=== PATIENT | male | born 1970 | race Caucasian/White ===

== ENCOUNTER 2016-06-22 08:23 | Day surgery (SDC) | payer BC ==
[~2016-06-22 08:23] MED LIST: DIPRIVAN 200 MG/20 ML IV ONE; Kenalog-40 IM ONE; Ketamine HCl 50 MG/ML IV ONE; Sensorcaine 0.25% 10 ML IJ ONE
[2016-06-22 09:42] VITALS: BP 132/78; PULSE 58; O2SAT 98
[2016-06-22] MEDS ORDERED: Lactated Ringers 1,000 ML IV SCH (10:00)
--- NOTE | 2016-06-23 08:48 | XRAY ---
9 seconds fluoro time in surgery for right L3-S1 facet injection.
--- NOTE | 2016-06-23 08:48 | XRAY ---
Indication: Right L3-S1 facet injection. Intraoperative fluoroscopy was provided for 9 seconds. Single frontal digital spot image of the lower lumbar spine submitted for interpretation demonstrates 3 posterior spinal needles with the tips projecting over the right L3-S1 facets. Correlate with intraoperative findings/report.
== END 2016-06-22 12:07 | disposition home or self-care (01) ==
LOC: SDC-PAIN 08:23
PROVIDERS: ATTEND Pain Medicine Interventional Pain Medicine
DX: M96.1 Postlaminectomy syndrome, not elsewhere classified (principal); M54.5 Low back pain; M47.816 Spondylosis without myelopathy or radiculopathy, lumbar region
CPT/HCPCS: 64493; 64494; 64495; 72020; 77003; J2704; J3301

== ENCOUNTER 2016-12-17 20:04 | Emergency (ER) | payer BC ==
[2016-12-17] MEDS ORDERED: Nitrostat 0.4 MG (ED) SL ONE ×6 (20:14→20:46)
[2016-12-17] MEDS ORDERED: BABY ASPIRIN 81 MG CHEW PO ONE (20:14)
[2016-12-17] MEDS ORDERED: Sodium Chloride 0.9% 1000 ML 1,000 ML IV SCH (20:15)
[2016-12-17] MEDS ORDERED: Sodium Chloride 0.9% 1000 ML 1,000 ML ONE (20:24)
[2016-12-17] MEDS ORDERED: BABY ASPIRIN 81 MG CHEW ONE (20:25)
--- NOTE | 2016-12-17 20:25 | ERPHSYRPT ---
- History of Present Illness Time Seen by Provider: 12/17/16 20:07 Historian: patient Exam Limitations: no limitations Patient Subjective Stated Complaint: pt had sudden onset substernal chest pain sudden onset pos diaphoresis tingling thru to back grabbed and squeezed neg nv did eat a spicy meal 1130states on prednisone for a rasha nd he has a bad back Triage Nursing Assessment: pt is awake and alert and moaning and holding his chest Physician History: FOR THE PAST 10 MINUTES PT HAS HAD LOWER MID ANTERIOR CHEST PAIN RADIATING TO THE BACK WITH DIAPHORESIS; DENIES SHORTNESS OF AIR, ABDOMINAL PAIN, NAUSEA, VOMITING. Aspirin Treatment Today: 81 mg x 4, provided by ED Allergies/Adverse Reactions: No Known Drug Allergies Allergy (Verified 12/17/16 20:22) Home Medications: Hydrocodone Bit/Acetaminophen [Hydrocodon-Acetaminophn 10-325] 1 tab PO TID [History] Lisinopril 10 mg [Zestril 10 MG] 10 mg PO DAILY 05/12/16 [History] Simvastatin 20 mg PO DAILY 05/12/16 [History] AMITRIPTYLINE HCL 50 mg Tab [AMITRIPTYLINE HCL 50 mg Tablet] 100 mg PO HS [History] Hx Tetanus, Diphtheria Vaccination/Date Given: Yes (1 YEAR) Hx Influenza Vaccination/Date Given: Yes Hx Pneumococcal Vaccination/Date Given: No Immunizations Up to Date: Yes - Review of Systems Constitutional: No Fever Respiratory: No Dyspnea Cardiac: Chest Pain Abdominal/Gastrointestinal: No Abdominal Pain, No Nausea, No Vomiting Musculoskeletal: Back Pain Endocrine: Excessive Sweating All Other Systems: Reviewed and Negative - Past Medical History Pertinent Past Medical History: No Neurological History: No Pertinent History ENT History: No Pertinent History Cardiac History: High Cholesterol, Hypertension Respiratory History: No Pertinent History Endocrine Medical History: No Pertinent History Musculoskeletal History: Osteoarthritis GI Medical History: No Pertinent History History: No Pertinent History Psycho-Social History: No Pertinent History - Past Surgical History Past Surgical History: Yes Other Surgical History: TRAUMATIC C-7 REPAIR - Social History Smoking Status: Former smoker Exposure to second hand smoke: No Drug Use: none Patient Lives Alone: No - Nursing Vital Signs Nursing Vital Signs: Initial Vital Signs Pulse Rate 72 12/17/16 20:10 Respiratory Rate 24 12/17/16 20:10 Blood Pressure 150/106 12/17/16 20:10 O2 Sat by Pulse Oximetry 96 12/17/16 20:10 Pain Scale Pain Intensity 1 - Physical Exam General Appearance: alert, anxiety Eye Exam: PERRL/EOMI Ears, Nose, Throat Exam: pharynx normal, moist mucous membranes Neck Exam: normal inspection Respiratory Exam: lungs clear Cardiovascular Exam: normal heart sounds Gastrointestinal/Abdomen Exam: soft, normal bowel sounds Back Exam: normal inspection Extremity Exam: normal inspection, No pedal edema Neurologic Exam: alert, cooperative Skin Exam: warm, dry SpO2 Interpretation: normal SpO2: 96 Oxygen Delivery: Room Air - Course Nursing assessment & vital signs reviewed: Yes EKG Interpreted by Me: RATE (70), Sinus Rhythm, NORMAL AXIS, NORMAL INTERVALS - Radiology Exams Chest X-ray Interpretation: Interpreted by me, No Pneumonia Ordered Tests: Active Orders 24 hr Category Date Time Status Multimedia Instructional Designer STAT Care 12/17/16 20:14 Active Clean Catch Urine Specimen STAT Care 12/17/16 20:14 Active EKG-ER Only STAT Care 12/17/16 20:14 Active EKG-ER Only STAT Care 12/17/16 21:02 Active IV Insertion STAT Care 12/17/16 20:14 Active Oxygen-ED Only NASAL CANNULA 2 lpm Care 12/17/16 20:14 Active Pulse Oximetry (ED) STAT Care 12/17/16 20:14 Active CHEST 1 VIEW (PORTABLE) Stat Exams 12/17/16 20:15 Taken AMYLASE Stat Lab 12/17/16 20:20 Completed CBC W DIFF Stat Lab 12/17/16 20:20 Completed CMP Stat Lab 12/17/16 20:20 Completed D-DIMER QUANTITATION Stat Lab 12/17/16 20:20 Completed LIPASE Stat Lab 12/17/16 20:20 Completed MAGNESIUM Stat Lab 12/17/16 20:20 Completed NT PRO BNP Stat Lab 12/17/16 20:20 Completed TROPONIN Q3H Lab 12/17/16 20:20 Completed TROPONIN Q3H Lab 12/17/16 23:15 Ordered TROPONIN Q3H Lab 12/18/16 02:15 Ordered TROPONIN Q3H Lab 12/18/16 05:15 Ordered TROPONIN Q3H Lab 12/18/16 08:15 Ordered UA W/RFX UR CULTURE Stat Lab 12/17/16 20:15 Ordered Urine Triage Profile Stat Lab 12/17/16 20:15 Ordered Medication Summary Generic Name Dose Route Start Last Admin Trade Name Freq PRN Reason Stop Dose Admin Sodium Chloride 1,000 mls @ 100 mls/hr 12/17/16 20:15 12/17/16 20:27 Sodium Chloride 0.9% 1000 Ml IV 01/16/17 20:14 100 mls/hr .Q10H MINA Administration Sodium Chloride 1,000 mls @ 999 mls/hr 12/17/16 21:22 12/17/16 21:33 Sodium Chloride 0.9% 1000 Ml IV 12/17/16 22:22 999 mls/hr .Q1H1M STA Administration Discontinued Medications Generic Name Dose Route Start Last Admin Trade Name Freq PRN Reason Stop Dose Admin Aspirin 324 mg 12/17/16 20:14 12/17/16 20:27 Baby Aspirin 81 Mg Chew PO 12/17/16 20:15 324 mg STAT ONE Administration Aspirin Confirm 12/17/16 20:25 Baby Aspirin 81 Mg Chew Administered 12/17/16 20:26 Dose 324 mg .ROUTE .STK-MED ONE Nitroglycerin 0.4 mg 12/17/16 20:14 12/17/16 20:24 Nitrostat 0.4 Mg (Ed) SL 12/17/16 20:15 0.4 mg STAT ONE Administration Nitroglycerin 0.4 mg 12/17/16 20:25 12/17/16 20:28 Nitrostat 0.4 Mg (Ed) SL 12/17/16 20:26 0.4 mg STAT ONE Administration Nitroglycerin Confirm 12/17/16 20:25 Nitrostat 0.4 Mg (Ed) Administered 12/17/16 20:26 Dose 0.4 mg SL .STK-MED ONE Nitroglycerin Confirm 12/17/16 20:31 Nitrostat 0.4 Mg (Ed) Administered 12/17/16 20:32 Dose 0.4 mg SL .STK-MED ONE Nitroglycerin 0.4 mg 12/17/16 20:43 12/17/16 20:47 Nitrostat 0.4 Mg (Ed) SL 12/17/16 20:44 0.4 mg STAT ONE Administration Nitroglycerin Confirm 12/17/16 20:46 Nitrostat 0.4 Mg (Ed) Administered 12/17/16 20:47 Dose 0.4 mg SL .STK-MED ONE Lab/Rad Data: Laboratory Result Diagrams 12/17/16 20:20 12/17/16 20:20 Laboratory Results 12/17/16 12/17/16 12/17/16 Range/Units 20:20 20:20 20:20 WBC (4.0-10.5) K/mm3 RBC (4.1-5.6) M/mm3 Hgb (12.5-18.0) gm/dl Hct (42-50) % MCV (78-100) fl MCH (26-32) pg MCHC (32-36) g/dl RDW (11.5-14.0) % Plt Count (150-450) K/mm3 MPV (6-9.5) fl Gran % (36.0-66.0) % Lymphocytes % (24.0-44.0) % Monocytes % (0.0-12.0) % Eosinophils % (0.00-5.0) % Basophils % (0.0-0.4) % Basophils # (0-0.4) D-Dimer 239 (0-500) ng/mL Sodium 140 (136-145) mEq/L Potassium 3.9 (3.5-5.1) mEq/L Chloride 103 (98-107) mEq/L Carbon Dioxide 24.7 (21-32) mEq/L Anion Gap 16.0 H (5-15) MEQ/L BUN 24 H (9-20) mg/dL Creatinine 1.24 (0.55-1.30) mg/dl Estimated GFR > 60 ML/MIN Glucose 102 (70-110) MG/DL Calcium 9.6 (8.5-10.1) mg/dL Magnesium 1.9 (1.8-2.4) mg/dL Total Bilirubin 0.40 (0.2-1.0) mg/dL AST 19 (15-37) U/L ALT 51 (12-78) U/L Alkaline Phosphatase 65 (46-116) U/L Troponin I 0.028 (0.000-0.056) ng/ml NT-Pro-B Natriuret Pep 43 (0-125) pg/ml Serum Total Protein 7.6 (6.4-8.2) gm/dL Albumin 4.3 (3.4-5.0) g/dL Amylase 40 (25-115) U/L Lipase 139 (73-393) U/L 12/17/16 Range/Units 20:20 WBC 11.3 H (4.0-10.5) K/mm3 RBC 4.82 (4.1-5.6) M/mm3 Hgb 14.4 (12.5-18.0) gm/dl Hct 42.7 (42-50) % MCV 88.6 (78-100) fl MCH 29.9 (26-32) pg MCHC 33.7 (32-36) g/dl RDW 14.6 H (11.5-14.0) % Plt Count 275 (150-450) K/mm3 MPV 9.4 (6-9.5) fl Gran % 71.5 H (36.0-66.0) % Lymphocytes % 20.9 L (24.0-44.0) % Monocytes % 6.8 (0.0-12.0) % Eosinophils % 0.5 (0.00-5.0) % Basophils % 0.3 (0.0-0.4) % Basophils # 0.03 (0-0.4) D-Dimer (0-500) ng/mL Sodium (136-145) mEq/L Potassium (3.5-5.1) mEq/L Chloride (98-107) mEq/L Carbon Dioxide (21-32) mEq/L Anion Gap (5-15) MEQ/L BUN (9-20) mg/dL Creatinine (0.55-1.30) mg/dl Estimated GFR ML/MIN Glucose (70-110) MG/DL Calcium (8.5-10.1) mg/dL Magnesium (1.8-2.4) mg/dL Total Bilirubin (0.2-1.0) mg/dL AST (15-37) U/L ALT (12-78) U/L Alkaline Phosphatase (46-116) U/L Troponin I (0.000-0.056) ng/ml NT-Pro-B Natriuret Pep (0-125) pg/ml Serum Total Protein (6.4-8.2) gm/dL Albumin (3.4-5.0) g/dL Amylase (25-115) U/L Lipase (73-393) U/L - Progress Discussed with : Other (SPOKE WITH DR LONGO([id number]) WHO ACCEPTED PT FOR TRANSFER TO [facility] A DIRECT ADMISSION.) - Departure Time of Disposition: 21:44 Departure Disposition: Transfer ([facility]) Clinical Impression: CHEST PAIN, HTN, ARTHRITIS Condition: Stable Critical Care Time: No Referrals: Fozia Taylor NP [Primary Care Provider] -
[2016-12-17 20:28] LABS: BASOPHIL % 0.3 % (0.0-0.4); Eosinophil % 0.5 % (0.00-5.0); Granulocytes % 71.5 % (36.0-66.0); Lymphocytes % 20.9 % (24.0-44.0); Mean Cell Volume 88.6 fl (78-100); Mean Corpuscular Hemoglobin 29.9 pg (26-32); Mean Platelet Volume 9.4 fl (6-9.5); Monocytes % 6.8 % (0.0-12.0); Platelet Count 275 K/mm3 (150-450); Red Blood Count 4.82 M/mm3 (4.1-5.6); Red Cell Distribution Width 14.6 % (11.5-14.0); White Blood Count 11.3 K/mm3 (4.0-10.5)
[2016-12-17 21:07] LABS: ALBUMIN 4.3 g/dL (3.4-5.0); ALKALINE PHOSPHATASE 65 U/L (46-116); BLOOD UREA NITROGEN 24 mg/dL (9-20); CHLORIDE 103 mEq/L (98-107); Carbon Dioxide 24.7 mEq/L (21-32); Glucose 102 MG/DL (70-110); LIPASE 139 U/L (73-393); MAGNESIUM 1.9 mg/dL (1.8-2.4); Potassium 3.9 mEq/L (3.5-5.1); SGOT/AST 19 U/L (15-37); SGPT/ALT 51 U/L (12-78); SODIUM 140 mEq/L (136-145); Total Protein 7.6 gm/dL (6.4-8.2)
[2016-12-17 21:19] VITALS: PULSE 58
[2016-12-17] MEDS ORDERED: Sodium Chloride 0.9% 1000 ML 1,000 ML IV STA (21:22)
[2016-12-17] MEDS ORDERED: Hydromorphone 1 mg/ml Ampule IV ONE (22:24)
[2016-12-17] MEDS ORDERED: Phenergan 25 MG INJ IV ONE (22:24)
[2016-12-17] MEDS ORDERED: Hydromorphone 1 mg/ml Ampule ONE (22:27)
[2016-12-17] MEDS ORDERED: Phenergan 25 MG INJ ONE (22:27)
[2016-12-17 23:10] VITALS: BP 130/78; O2SAT 98
--- NOTE | 2016-12-18 08:13 | XRAY ---
Indication: Pain. Comparison: None Portable apical lordotic chest demonstrates normal heart and lungs. Bony thorax intact with partially visualized lower cervical fusion surgery.
== END 2016-12-17 23:00 | disposition short-term general hospital (02) ==
LOC: SUPCPDRO 20:04 → ED 20:04
DX: R07.9 Chest pain, unspecified (principal); I10 Essential (primary) hypertension; M19.90 Unspecified osteoarthritis, unspecified site; M54.9 Dorsalgia, unspecified
CPT/HCPCS: 36000; 36415; 71010; 80053; 82150; 83690; 83735; 83880; 84484; 85025; 85379; 93005; 93041; 96360; 96361; 96374; 96375; 99285; J1170; J2550; A9270-GY

== ENCOUNTER 2019-02-14 17:27 | Emergency (ER) | payer BC ==
[2019-02-14] MEDS ORDERED: MORPHINE SULFATE 4 MG INJ IV ONE (17:32)
[2019-02-14] MEDS ORDERED: BABY ASPIRIN 81 MG CHEW PO ONE (17:32)
[2019-02-14] MEDS ORDERED: Sodium Chloride 0.9% 1000 ML 1,000 ML IV STA (17:32)
[2019-02-14] MEDS ORDERED: BABY ASPIRIN 81 MG CHEW ONE (17:42)
[2019-02-14] MEDS ORDERED: MORPHINE SULFATE 4 MG INJ ONE (17:42)
[2019-02-14] MEDS ORDERED: Sodium Chloride 0.9% 1000 ML 1,000 ML ONE (17:42)
[2019-02-14 17:44] LABS: BASOPHIL % 1.1 % (0.0-0.4); Basophil (Absolute #) 0.08 (0-0.4); Granulocyte Absolute (ANC) 4.46 (1.4-6.9); Granulocytes % 59.6 % (36.0-66.0); Hematocrit 42.6 % (42-50); Hemoglobin 14.7 gm/dl (12.5-18.0); Lymphocyte (Absolute #) 2.04 (1.0-4.6); Lymphocytes % 27.3 % (24.0-44.0); Mean Cell Volume 88.8 fl (78-100); Mean Corpuscular Hemoglobin 30.6 pg (26-32); Mean Corpuscular Hgb Concent. 34.5 g/dl (32-36); Mean Platelet Volume 9.2 fl (6-9.5); Platelet Count 284 K/mm3 (150-450); Red Cell Distribution Width 14.3 % (11.5-14.0); White Blood Count 7.5 K/mm3 (4.0-10.5)
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
[2019-02-14 17:51] LABS: INR 0.97 (0.8-3.0)
[2019-02-14 17:53] LABS: PTT 33.8 SECONDS (24.1-36.1)
[2019-02-14 18:03] LABS: ALBUMIN 4.5 g/dL (3.5-5.0); ALKALINE PHOSPHATASE 74 U/L (38-126); ANION GAP 15.8 MEQ/L (5-15); BLOOD UREA NITROGEN 18 mg/dL (9-20); CHLORIDE 104 mmol/L (98-107); CK-Creatinine Phosphokinase 176 U/L (55-170); Calcium 9.4 mg/dL (8.4-10.2); Carbon Dioxide 25 mmol/L (22-30); Creatinine 1 0.91 mg/dL (0.66-1.25); Glucose 90 mg/dL (74-106); LIPASE 173 U/L (23-300); Potassium 4.2 mmol/L (3.5-5.1); SGOT/AST 55 U/L (17-59); SGPT/ALT 90 U/L (0-50); SODIUM 141 mmol/L (137-145); Total Protein 7.8 g/dL (6.3-8.2)
[2019-02-14 19:16] LABS: Amphetamine,Urine NEGATIVE (NEGATIVE); Barbiturate,Urine NEGATIVE (NEGATIVE); Benzodiazepine,Urine NEGATIVE (NEGATIVE); Cocaine,Urine NEGATIVE (NEGATIVE); Methadone,Urine NEGATIVE (NEGATIVE); Opiate,Urine POSITIVE (NEGATIVE); PCP,Urine NEGATIVE (NEGATIVE); THC,Urine NEGATIVE (NEGATIVE)
[2019-02-14 22:10] VITALS: BP 154/74; PULSE 55; O2SAT 98
--- NOTE | 2019-02-15 10:12 | XRAY ---
Indication: Chest pain. Comparison: December 17, 2016. Portable apical lordotic chest again demonstrates normal heart and lungs. Bony thorax intact again with mild degenerative changes and lower cervical fusion. No new/acute findings.
== END 2019-02-14 22:07 | disposition home or self-care (01) ==
LOC: ED 17:27
DX: R07.9 Chest pain, unspecified (principal); R03.0 Elevated blood-pressure reading, without diagnosis of hypertension
CPT/HCPCS: 36000; 36415; 71045; 80053; 80307; 82550; 83690; 83880; 84484; 85025; 85610; 85730; 93005; 93041; 96360; 96374; 99284; J2270; A9270-GY

== ENCOUNTER 2019-11-10 19:25 | Emergency (ER) | payer BC, OTHER ==
[2019-11-10] MEDS ORDERED: TORAdol 30 mg Injection IM ONE (20:19)
[2019-11-10] MEDS ORDERED: TORAdol 30 mg Injection ONE (20:28)
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
[2019-11-10 22:16] VITALS: BP 162/85; PULSE 64; O2SAT 99
--- NOTE | 2019-11-11 09:01 | XRAY ---
Indication: Pain following injury. Comparison: None 2 view left ribs demonstrates nondisplaced anterior 8th rib fracture. Elsewhere moderate AC degenerative arthropathy, minimal multilevel thoracic degenerative spondylosis, minimal lumbar dextroscoliosis, and lower cervical fusion surgery. Comment: Rib fracture not reported by interpreting ER clinician. Telephone report given to Dr. Olea in the ER at 0856 hours on November 11, 2019.
--- NOTE | 2019-11-11 09:01 | XRAY ---
Indication: Left-sided pain following injury. Comparison: February 14, 2019. Portable chest again demonstrates normal heart and lungs. Bony thorax intact again with mild degenerative changes in lower cervical fusion. No new/acute findings.
== END 2019-11-10 21:31 | disposition home or self-care (01) ==
LOC: ED 19:25
DX: S22.32XA Fracture of one rib, left side, initial encounter for closed fracture (principal); R07.81 Pleurodynia; Y04.0XXA Assault by unarmed brawl or fight, initial encounter; Y93.72 Activity, wrestling; Y92.149 Unspecified place in prison as the place of occurrence of the external cause; Y99.0 Civilian activity done for income or pay
CPT/HCPCS: 71045; 71100; 96372; 99284; J1885

== ENCOUNTER 2020-09-05 06:57 | Observation (INO) | payer BC ==
[2020-09-05] MEDS ORDERED: Nitrostat 0.4 MG (ED) SL ONE ×2 (07:16→07:39)
[2020-09-05] MEDS ORDERED: MORPHINE SULFATE 4 MG INJ IV ONE (07:21)
[2020-09-05] MEDS ORDERED: BABY ASPIRIN 81 MG CHEW ONE (07:38)
[2020-09-05] MEDS ORDERED: MORPHINE SULFATE 4 MG INJ ONE (07:39)
[2020-09-05] MEDS ORDERED: Zofran 4 MG/2 ML VIAL ONE (07:39)
[2020-09-05] MEDS ORDERED: Zofran 4 MG/2 ML VIAL IV ONE (07:39)
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
[2020-09-05 07:58] LABS: Absolute Neutrophil Ct (ANC) 4.68 (1.4-6.9); BASOPHIL % 0.6 % (0.0-0.4); Basophil (Absolute #) 0.05 (0-0.4); Eosinophil % 2.4 % (0.00-5.0); Eosinophil (Absolute #) 0.19 (0-0.5); Hematocrit 43.8 % (42-50); Hemoglobin 14.2 gm/dl (12.5-18.0); Lymphocyte (Absolute #) 2.52 (1.0-4.6); Lymphocytes % 31.5 % (24.0-44.0); Mean Cell Volume 90.7 fl (78-100); Mean Corpuscular Hemoglobin 29.4 pg (26-32); Mean Corpuscular Hgb Concent. 32.4 g/dl (32-36); Mean Platelet Volume 9.8 fl (7.5-11.0); Monocyte (Absolute #) 0.55 (0.0-1.3); Monocytes % 6.9 % (0.0-12.0); Neutrophil % 58.6 % (36.0-66.0); Platelet Count 295 K/mm3 (150-450); Red Blood Count 4.83 M/mm3 (4.1-5.6); Red Cell Distribution Width 14.3 % (11.5-14.0)
[2020-09-05 08:05] LABS: ALBUMIN 4.4 g/dL (3.5-5.0); ALKALINE PHOSPHATASE 69 U/L (38-126); ANION GAP 12.9 MEQ/L (5-15); BLOOD UREA NITROGEN 27 mg/dL (9-20); CHLORIDE 105 mmol/L (98-107); Calcium 9.7 mg/dL (8.4-10.2); Carbon Dioxide 26 mmol/L (22-30); Creatinine 1 1.08 mg/dL (0.66-1.25); EST GLOMERULAR FILTRATION RATE > 60.0 ML/MIN; Glucose 86 mg/dL (74-106); SGOT/AST 23 U/L (17-59); SGPT/ALT 24 U/L (0-50); SODIUM 140 mmol/L (137-145); Total Protein 7.3 g/dL (6.3-8.2)
--- NOTE | 2020-09-05 08:17 | XRAY ---
Indication: Chest pain. Comparison: November 10, 2019. Portable apical lordotic chest remains clear. Heart not enlarged. Bony thorax intact again with lower cervical fusion surgery. No new/acute findings.
[2020-09-05] MEDS ORDERED: ECOTRIN 81 MG PO SCH (10:00)
[2020-09-05 10:43] LABS: INFLUENZA A NEGATIVE (NEGATIVE); INFLUENZA B NEGATIVE (NEGATIVE); RESPIRATORY SYNCTIAL VIRUS NEGATIVE (Negative)
[2020-09-05] MEDS ORDERED: DUONEB 0.5-3 MG/3 ml Neb IH PRN (11:40)
[2020-09-05] MEDS ORDERED: TYLENOL 325 MG PO PRN (11:40)
[2020-09-05] MEDS ORDERED: Zofran 4 MG/2 ML VIAL IV PRN (11:40)
[2020-09-05] MEDS: Effexor XR 75 MG PO SCH (13:54)
[2020-09-05] MEDS: PROTONIX 40 MG IV IV SCH (13:54)
[2020-09-05] MEDS: MORPHINE SULFATE 2 MG INJ IV PRN ×2 (13:54→18:44)
[2020-09-05] MEDS: OXYCODONE-ACETAMINOPHEN 10-325 PO PRN ×2 (16:10→20:56)
[2020-09-05] MEDS: MOTRIN 400 MG PO SCH ×2 (16:11→20:56)
[2020-09-05] MEDS ORDERED: Zanaflex 4 MG PO SCH (22:00)
[2020-09-06 06:09] LABS: Absolute Neutrophil Ct (ANC) 3.32 (1.4-6.9); Basophil (Absolute #) 0.06 (0-0.4); Eosinophil % 2.5 % (0.00-5.0); Eosinophil (Absolute #) 0.15 (0-0.5); Hematocrit 41.6 % (42-50); Hemoglobin 13.6 gm/dl (12.5-18.0); Lymphocyte (Absolute #) 1.99 (1.0-4.6); Lymphocytes % 33.7 % (24.0-44.0); Mean Cell Volume 91.6 fl (78-100); Mean Corpuscular Hgb Concent. 32.7 g/dl (32-36); Mean Platelet Volume 9.5 fl (7.5-11.0); Monocyte (Absolute #) 0.39 (0.0-1.3); Monocytes % 6.6 % (0.0-12.0); Neutrophil % 56.2 % (36.0-66.0); Platelet Count 240 K/mm3 (150-450); Red Blood Count 4.54 M/mm3 (4.1-5.6); Red Cell Distribution Width 14.5 % (11.5-14.0); White Blood Count 5.9 K/mm3 (4.0-10.5)
[2020-09-06 06:22] LABS: ALBUMIN 3.8 g/dL (3.5-5.0); ALKALINE PHOSPHATASE 57 U/L (38-126); BLOOD UREA NITROGEN 16 mg/dL (9-20); CHLORIDE 106 mmol/L (98-107); Calcium 9.2 mg/dL (8.4-10.2); Carbon Dioxide 27 mmol/L (22-30); Creatinine 1 0.92 mg/dL (0.66-1.25); EST GLOMERULAR FILTRATION RATE > 60.0 ML/MIN; Glucose 111 mg/dL (74-106); Potassium 4.5 mmol/L (3.5-5.1); SGOT/AST 37 U/L (17-59); SGPT/ALT 22 U/L (0-50); SODIUM 138 mmol/L (137-145); Total Protein 6.7 g/dL (6.3-8.2)
[2020-09-06 07:54] VITALS: BP 152/84; PULSE 58; O2SAT 97
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
[2020-09-06] MEDS: PROTONIX 40 MG IV IV SCH (08:48)
[2020-09-06] MEDS: MOTRIN 400 MG PO SCH (08:48)
[2020-09-06] MEDS: Effexor XR 75 MG PO SCH (08:48)
[2020-09-06] MEDS: OXYCODONE-ACETAMINOPHEN 10-325 PO PRN (08:49)
[2020-09-06] MEDS ORDERED: NON-FORMULARY ITEM (Venlafaxine Hcl [Effexor Xr] 150 MG) PO SCH (10:00)
--- NOTE | 2020-09-06 10:58 | PCM.DS ---
Discharge Summary Date of Admission: 09/05/20 11:36 Admitting Physician: EDWIN WATERS Primary Care Provider: SUKH ARREOLA DO Allergies Allergies No Known Drug Allergies Allergy (Verified 09/05/20 07:00) Hospital Summary - Hospital Course Hospital Course: Chief Complaint Diagnosis chest pain started approximately 4-5 hours ago Allergies Allergy/AdvReac Type Severity Reaction Status Date / Time No Known Drug Allergies Allergy Verified 09/05/20 07:00 Vital Signs (Last 24 hours) Temp Pulse Resp BP Pulse Ox 09/06/20 07:53 97.6 F 58 L 13 152/84 97 09/06/20 04:10 97.5 F 52 L 18 125/75 98 09/05/20 23:37 97.9 F 52 L 16 136/73 99 09/05/20 19:29 97.6 F 51 L 18 149/80 98 09/05/20 16:00 97.7 F 50 L 16 137/76 94 L 09/05/20 11:58 97.7 F 49 L 18 97 09/05/20 11:51 97.7 F 49 L 16 186/89 97 Home Medications Medication Instructions Recorded Confirmed Last Taken Type Ibuprofen [Ibu] 400 mg PO TID 09/05/20 09/05/20 09/04/20 History Tizanidine HCl 4 mg [Zanaflex 4 1 tab PO HS 09/05/20 09/05/20 09/04/20 History MG] Current Medications Generic Name Dose Route Start Last Admin Trade Name Freq PRN Reason Stop Dose Admin Acetaminophen 650 mg 09/05/20 11:40 Tylenol 325 Mg PO 10/05/20 11:39 Q4H PRN PRN PAIN AND/OR FEVER Ibuprofen 400 mg 09/05/20 15:00 09/06/20 08:48 Motrin 400 Mg PO 10/05/20 14:59 400 mg TID MINA Administration Morphine Sulfate 2 mg 09/05/20 11:40 09/05/20 18:44 Morphine Sulfate 2 Mg Inj IV 09/10/20 11:39 2 mg Q4H PRN PRN Administration PAIN Ondansetron HCl 4 mg 09/05/20 11:40 Zofran 4 Mg/2 Ml Vial IV 10/05/20 11:39 Q6H PRN PRN NAUSEA/VOMITING Oxycodone/Acetaminophen 1 tab 09/05/20 13:06 09/06/20 08:49 Oxycodone-Acetaminophen 10-325 PO 09/10/20 13:05 1 tab TIDPRN PRN Administration PAIN Pantoprazole Sodium 40 mg 09/05/20 11:40 09/06/20 08:48 Protonix 40 Mg Iv IV 10/05/20 11:39 40 mg Q24H10 MINA Administration Tizanidine HCl 4 mg 09/05/20 22:00 09/05/20 20:56 Zanaflex 4 Mg PO 10/05/20 21:59 4 mg HS MINA Administration Venlafaxine HCl 150 mg 09/05/20 14:00 09/06/20 08:48 Effexor Xr 75 Mg PO 10/05/20 13:59 150 mg DAILY MINA Administration Discontinued Medications Generic Name Dose Route Start Last Admin Trade Name Freq PRN Reason Stop Dose Admin Albuterol/Ipratropium 3 ml 09/05/20 11:40 Duoneb 0.5-3 Mg/3 Ml Neb IH 10/05/20 11:39 Q4HPRN PRN SHORTNESS OF BREATH/WHEEZING Aspirin 324 mg 09/05/20 10:00 09/05/20 07:43 Ecotrin 81 Mg PO 10/05/20 09:59 324 mg DAILY MINA Administration Aspirin Confirm 09/05/20 07:38 Baby Aspirin 81 Mg Chew Administered 09/05/20 07:39 Dose 324 mg .ROUTE .STK-MED ONE Morphine Sulfate 4 mg 09/05/20 07:21 09/05/20 07:42 Morphine Sulfate 4 Mg Inj IV 09/05/20 07:22 4 mg STAT ONE Administration Morphine Sulfate Confirm 09/05/20 07:39 Morphine Sulfate 4 Mg Inj Administered 09/05/20 07:40 Dose 4 mg .ROUTE .STK-MED ONE Nitroglycerin 0.4 mg 09/05/20 07:16 09/05/20 07:42 Nitrostat 0.4 Mg (Ed) SL 09/05/20 07:17 0.4 mg STAT ONE Administration Nitroglycerin Confirm 09/05/20 07:39 Nitrostat 0.4 Mg (Ed) Administered 09/05/20 07:40 Dose 0.4 mg SL .STK-MED ONE Ondansetron HCl 4 mg 09/05/20 07:39 09/05/20 07:41 Zofran 4 Mg/2 Ml Vial IV 09/05/20 07:40 4 mg STAT ONE Administration Ondansetron HCl Confirm 09/05/20 07:39 Zofran 4 Mg/2 Ml Vial Administered 09/05/20 07:40 Dose 4 mg .ROUTE .STK-MED ONE Intake & Output (Last 24 hours) 09/03/20 09/04/20 09/05/20 09/06/20 11:59 11:59 11:59 11:59 Intake Total 2480 Balance 2480 Weight 121 kg 121.4 kg Laboratory Results (Last 24 hours) 09/06/20 09/06/20 09/05/20 05:40 05:40 23:00 WBC 5.9 RBC 4.54 Hgb 13.6 Hct 41.6 L MCV 91.6 MCH 30.0 MCHC 32.7 RDW 14.5 H Plt Count 240 MPV 9.5 Gran % 56.2 Eos # (Auto) 0.15 Absolute Lymphs (auto) 1.99 Absolute Monos (auto) 0.39 Lymphocytes % 33.7 Monocytes % 6.6 Eosinophils % 2.5 Basophils % 1.0 Absolute Granulocytes 3.32 Basophils # 0.06 Sodium 138 Potassium 4.5 Chloride 106 Carbon Dioxide 27 Anion Gap 10.0 BUN 16 Creatinine 0.92 Estimated GFR > 60.0 Glucose 111 H Calcium 9.2 Total Bilirubin 0.40 AST 37 ALT 22 Alkaline Phosphatase 57 Troponin I < 0.012 Serum Total Protein 6.7 Albumin 3.8 Influenza Type A Ag Influenza Type B Ag RSV (PCR) SARS-CoV-2 (PCR) 09/05/20 09/05/20 09/05/20 19:15 17:00 13:35 WBC RBC Hgb Hct MCV MCH MCHC RDW Plt Count MPV Gran % Eos # (Auto) Absolute Lymphs (auto) Absolute Monos (auto) Lymphocytes % Monocytes % Eosinophils % Basophils % Absolute Granulocytes Basophils # Sodium Potassium Chloride Carbon Dioxide Anion Gap BUN Creatinine Estimated GFR Glucose Calcium Total Bilirubin AST ALT Alkaline Phosphatase Troponin I < 0.012 < 0.012 < 0.012 Serum Total Protein Albumin Influenza Type A Ag Influenza Type B Ag RSV (PCR) SARS-CoV-2 (PCR) 09/05/20 09/05/20 10:50 10:03 WBC RBC Hgb Hct MCV MCH MCHC RDW Plt Count MPV Gran % Eos # (Auto) Absolute Lymphs (auto) Absolute Monos (auto) Lymphocytes % Monocytes % Eosinophils % Basophils % Absolute Granulocytes Basophils # Sodium Potassium Chloride Carbon Dioxide Anion Gap BUN Creatinine Estimated GFR Glucose Calcium Total Bilirubin AST ALT Alkaline Phosphatase Troponin I < 0.012 Serum Total Protein Albumin Influenza Type A Ag NEGATIVE Influenza Type B Ag NEGATIVE RSV (PCR) NEGATIVE SARS-CoV-2 (PCR) NEGATIVE Orders (Last 24 hours) Category Date Time Status Bedrest with BRP/BSC ROUTINE Activity 09/05/20 11:40 Active Code Status Order ROUTINE Care 09/05/20 11:40 Active IV Care Q6H Care 09/05/20 11:[address] in Observation ROUTINE Care 09/05/20 11:40 Active [place], Apply ROUTINE Care 09/05/20 11:40 Active Telemetry q6h Care 09/05/20 11:36 Active Weight,Daily 0600 Care 09/05/20 11:40 Active House Regular Diet Diet 09/05/20 Lunch Active CBC W DIFF AM.LAB Lab 09/06/20 05:40 Completed CMP AM.LAB Lab 09/06/20 05:40 Completed TROPONIN Q3H Lab 09/05/20 10:50 Completed TROPONIN Q3H Lab 09/05/20 13:35 Completed TROPONIN Q3H Lab 09/05/20 17:00 Completed TROPONIN Q3H Lab 09/05/20 19:15 Completed TROPONIN Q3H Lab 09/05/20 23:00 Completed Acetaminophen 325 mg [Tylenol 325 mg] Med 09/05/20 11:40 Active 650 mg PO Q4H PRN PRN Albuterol/Ipratropium 3ml Neb* [DUONEB 0.5-3 MG/3 ml Med 09/05/20 11:40 Discon tinued Neb] 3 ml IH Q4HPRN PRN Aspirin EC 81 mg [Ecotrin 81 mg] Med 09/05/20 10:00 Discontinued 324 mg PO DAILY Ibuprofen 400 mg [Motrin 400 mg] Med 09/05/20 15:00 Active 400 mg PO TID Morphine Sulfate 2 mg Inj Med 09/05/20 11:40 Active 2 mg IV Q4H PRN PRN Ondansetron HCl 4 mg/2 ml [Zofran 4 MG/2 ML VIAL] Med 09/05/20 11:40 Active 4 mg IV Q6H PRN PRN Oxycodone / APAP 10/325 mg [Oxycodone-Acetaminophen Med 09/05/20 13:06 Ac tive 10-325] 1 tab PO TIDPRN PRN Pantoprazole 40 mg [Protonix 40 mg IV] Med 09/05/20 11:40 Active 40 mg IV Q24H10 Tizanidine HCl 4 mg [Zanaflex 4 MG] Med 09/05/20 22:00 Active 4 mg PO HS Venlafaxine HCl ER 75 mg [Effexor XR 75 MG] Med 09/05/20 14:00 Active 150 mg PO DAILY Oxygen Nasal Cannula 2 lpm RT 09/05/20 11:40 Completed Patient Care Notes (Last 24 hours) 09/06/20 10:13 Respiratory Note by Zenia Coats OP EXERCISE STRESS TEST ORDERED BY DR. WATERS. TEST WAS SCHEDULED FOR MondayAugust@ 11AM. NURSE AND MANAGEMENT PROFESSIONAL NOTIFIED OF SCHEDULED DATE/TIME. Initialized on 09/06/20 10:13 - END OF NOTE 09/06/20 09:31 Nursing Note by Florin Scruggs DR ROUNDED ON PT, PT CAN DC, ORDER OUTPT EXERCISE STRESS TEST Initialized on 09/06/20 09:31 - END OF NOTE - Vitals & Intake/Output Vital Signs: Vital Signs Temperature 97.6 F 09/06/20 07:53 Pulse Rate 58 L 09/06/20 07:53 Respiratory Rate 13 09/06/20 07:53 Blood Pressure 152/84 09/06/20 07:53 O2 Sat by Pulse Oximetry 97 09/06/20 07:53 Intake & Output: Intake & Output 09/03/20 09/04/20 09/05/20 09/06/20 11:59 11:59 11:59 11:59 Intake Total 2480 Balance 2480 Weight 121 kg 121.4 kg - Lab Result Diagrams: 09/06/20 05:40 09/06/20 05:40 Lab Results-Last 24 Hrs: Lab Results-Last 24 Hours 09/05/20 09/05/20 09/05/20 Range/Units 10:03 10:50 13:35 WBC (4.0-10.5) K/mm3 RBC (4.1-5.6) M/mm3 Hgb (12.5-18.0) gm/dl Hct (42-50) % MCV (78-100) fl MCH (26-32) pg MCHC (32-36) g/dl RDW (11.5-14.0) % Plt Count (150-450) K/mm3 MPV (7.5-11.0) fl Gran % (36.0-66.0) % Eos # (Auto) (0-0.5) Absolute Lymphs (auto) (1.0-4.6) Absolute Monos (auto) (0.0-1.3) Lymphocytes % (24.0-44.0) % Monocytes % (0.0-12.0) % Eosinophils % (0.00-5.0) % Basophils % (0.0-0.4) % Absolute Granulocytes (1.4-6.9) Basophils # (0-0.4) Sodium (137-145) mmol/L Potassium (3.5-5.1) mmol/L Chloride (98-107) mmol/L Carbon Dioxide (22-30) mmol/L Anion Gap (5-15) MEQ/L BUN (9-20) mg/dL Creatinine (0.66-1.25) mg/dL Estimated GFR ML/MIN Glucose (74-106) mg/dL Calcium (8.4-10.2) mg/dL Total Bilirubin (0.2-1.3) mg/dL AST (17-59) U/L ALT (0-50) U/L Alkaline Phosphatase (38-126) U/L Troponin I < 0.012 < 0.012 (0.000-0.034) ng/mL Serum Total Protein (6.3-8.2) g/dL Albumin (3.5-5.0) g/dL Influenza Type A Ag NEGATIVE (NEGATIVE) Influenza Type B Ag NEGATIVE (NEGATIVE) RSV (PCR) NEGATIVE (Negative) SARS-CoV-2 (PCR) NEGATIVE (NEGATIVE) 09/05/20 09/05/20 09/05/20 Range/Units 17:00 19:15 23:00 WBC (4.0-10.5) K/mm3 RBC (4.1-5.6) M/mm3 Hgb (12.5-18.0) gm/dl Hct (42-50) % MCV (78-100) fl MCH (26-32) pg MCHC (32-36) g/dl RDW (11.5-14.0) % Plt Count (150-450) K/mm3 MPV (7.5-11.0) fl Gran % (36.0-66.0) % Eos # (Auto) (0-0.5) Absolute Lymphs (auto) (1.0-4.6) Absolute Monos (auto) (0.0-1.3) Lymphocytes % (24.0-44.0) % Monocytes % (0.0-12.0) % Eosinophils % (0.00-5.0) % Basophils % (0.0-0.4) % Absolute Granulocytes (1.4-6.9) Basophils # (0-0.4) Sodium (137-145) mmol/L Potassium (3.5-5.1) mmol/L Chloride (98-107) mmol/L Carbon Dioxide (22-30) mmol/L Anion Gap (5-15) MEQ/L BUN (9-20) mg/dL Creatinine (0.66-1.25) mg/dL Estimated GFR ML/MIN Glucose (74-106) mg/dL Calcium (8.4-10.2) mg/dL Total Bilirubin (0.2-1.3) mg/dL AST (17-59) U/L ALT (0-50) U/L Alkaline Phosphatase (38-126) U/L Troponin I < 0.012 < 0.012 < 0.012 (0.000-0.034) ng/mL Serum Total Protein (6.3-8.2) g/dL Albumin (3.5-5.0) g/dL Influenza Type A Ag (NEGATIVE) Influenza Type B Ag (NEGATIVE) RSV (PCR) (Negative) SARS-CoV-2 (PCR) (NEGATIVE) 09/06/20 09/06/20 Range/Units 05:40 05:40 WBC 5.9 (4.0-10.5) K/mm3 RBC 4.54 (4.1-5.6) M/mm3 Hgb 13.6 (12.5-18.0) gm/dl Hct 41.6 L (42-50) % MCV 91.6 (78-100) fl MCH 30.0 (26-32) pg MCHC 32.7 (32-36) g/dl RDW 14.5 H (11.5-14.0) % Plt Count 240 (150-450) K/mm3 MPV 9.5 (7.5-11.0) fl Gran % 56.2 (36.0-66.0) % Eos # (Auto) 0.15 (0-0.5) Absolute Lymphs (auto) 1.99 (1.0-4.6) Absolute Monos (auto) 0.39 (0.0-1.3) Lymphocytes % 33.7 (24.0-44.0) % Monocytes % 6.6 (0.0-12.0) % Eosinophils % 2.5 (0.00-5.0) % Basophils % 1.0 (0.0-0.4) % Absolute Granulocytes 3.32 (1.4-6.9) Basophils # 0.06 (0-0.4) Sodium 138 (137-145) mmol/L Potassium 4.5 (3.5-5.1) mmol/L Chloride 106 (98-107) mmol/L Carbon Dioxide 27 (22-30) mmol/L Anion Gap 10.0 (5-15) MEQ/L BUN 16 (9-20) mg/dL Creatinine 0.92 (0.66-1.25) mg/dL Estimated GFR > 60.0 ML/MIN Glucose 111 H (74-106) mg/dL Calcium 9.2 (8.4-10.2) mg/dL Total Bilirubin 0.40 (0.2-1.3) mg/dL AST 37 (17-59) U/L ALT 22 (0-50) U/L Alkaline Phosphatase 57 (38-126) U/L Troponin I (0.000-0.034) ng/mL Serum Total Protein 6.7 (6.3-8.2) g/dL Albumin 3.8 (3.5-5.0) g/dL Influenza Type A Ag (NEGATIVE) Influenza Type B Ag (NEGATIVE) RSV (PCR) (Negative) SARS-CoV-2 (PCR) (NEGATIVE) - Radiology Exams Ordered Rad Exams-Entire Visit: Radiology Procedures Category Date Time Status CHEST 1 VIEW (PORTABLE) Stat Exams 09/05/20 07:17 Completed - Procedures and Test Procedures and Tests throughout Hospitalization: Therapy Orders & Screens 09/05/20 11:40 Oxygen Nasal Cannula 2 lpm Comment: Discharge Exam General Appearance: no apparent distress, alert Neurologic Exam: alert, oriented x 3, cooperative, normal mood/affect, nml cerebellar function, sensation nml, No motor deficits Eye Exam: PERRL, EOMI, eyes nml inspection Ears, Nose, Throat Exam: normal ENT inspection, pharynx normal, moist mucous membranes Neck Exam: normal inspection, non-tender, supple, full range of motion Respiratory Exam: normal breath sounds, lungs clear, No respiratory distress Cardiovascular Exam: regular rate/rhythm, normal heart sounds Gastrointestinal/Abdomen Exam: soft, No tenderness, No mass Male Genitalia Exam: deferred Rectal Exam: deferred Back Exam: normal inspection, normal range of motion, No CVA tenderness, No vertebral tenderness Extremity Exam: normal inspection, normal range of motion Skin Exam: normal color, warm, dry Final Diagnosis/Problem List - Final Discharge Diagnosis/Problem (1) Chest pain, rule out acute myocardial infarction Current Visit: Yes Status: Resolved Priority: High Code(s): R07.9 - CHEST PAIN, UNSPECIFIED (2) Elevated blood pressure reading without diagnosis of hypertension Current Visit: Yes Status: Acute Code(s): R03.0 - ELEVATED BLOOD-PRESSURE READING, W/O DIAGNOSIS OF HTN - Discharge Discharge Date: 09/06/20 Disposition: Home, Self-Care Condition: Stable Prescriptions: Continue Venlafaxine HCl [Effexor Xr] 150 mg PO DAILY Oxycodone HCl/Acetaminophen [Percocet 10-325 mg Tablet] 1 each PO TIDPRN PRN PRN Reason: Pain Tizanidine HCl 4 mg [Zanaflex 4 MG] 1 tab PO HS Ibuprofen [Ibu] 400 mg PO TID Outpatient Orders: Stress Test: Regular Time Frame: 09/14/20, Facility: [facility], Location: RESPIRATORY THERAPY Instructions: Chest Pain That Is Not Caused by the Heart (DC), Blood Pressure Testing and Measurement, High Blood Pressure in Adults Follow up with: SUKH ARREOLA DO [Primary Care Provider] - 5 Days
== END 2020-09-06 10:58 | disposition home or self-care (01) ==
LOC: ED 06:57 → MED SURG 11:36
PROVIDERS: ADMIT General Practice; ATTEND Family Medicine
DX: R07.9 Chest pain, unspecified (principal); Z79.899 Other long term (current) drug therapy; R03.0 Elevated blood-pressure reading, without diagnosis of hypertension; Z20.828 Contact with and (suspected) exposure to other viral communicable diseases
CPT/HCPCS: 0241U; 36000; 36415; 71045; 80053; 83880; 84484; 85025; 85379; 93005; 93041; 93268; 94760; 96374; 96375; 99285; G0378; J2270; J2405; A9270-GY

== ENCOUNTER 2022-04-29 06:27 | Day surgery (SDC) | payer BC ==
[~2022-04-29 06:27] MED LIST changes: -DIPRIVAN 200 MG/20 ML IV ONE; -Kenalog-40 IM ONE; -Ketamine HCl 50 MG/ML IV ONE; +Lactated Ringers 1,000 ML IV ONE; -Sensorcaine 0.25% 10 ML IJ ONE; +Sensorcaine 0.25% 10 ML ONE; +XYLOCAINE 1% HCL 20 ML MDV ONE
[2022-04-29] MEDS ORDERED: CEFAZOLIN 2 GM-D5W BAG** 2 GM/50 ML ML IV SCH (06:30)
[2022-04-29] MEDS ORDERED: Lactated Ringers 1,000 ML IV SCH (06:30)
[2022-04-29] MEDS ORDERED: Versed 2 MG/2 ML Injection ONE (06:39)
[2022-04-29] MEDS ORDERED: SUBLIMAZE 100 MCG/2 ML ONE (06:39)
[2022-04-29] MEDS ORDERED: DIPRIVAN 200 MG/20 ML IV ONE (06:39)
[2022-04-29] MEDS ORDERED: Xylocaine-Mpf 2% 5 Ml Vial ONE (06:39)
[2022-04-29] MEDS ORDERED: Versed 2 MG/2 ML Injection IV PRN (06:54)
[2022-04-29] MEDS ORDERED: Zofran 4 MG/2 ML VIAL ONE (07:18)
[2022-04-29] MEDS ORDERED: Decadron 4 MG INJ ONE (07:18)
[2022-04-29] MEDS ORDERED: TORAdol 30 mg Injection ONE (07:18)
[2022-04-29] MEDS ORDERED: Marcaine Mpf 0.5% Vial 30 Ml ONE (07:23)
[2022-04-29 08:37] VITALS: PULSE 61; O2SAT 98
[2022-04-29 08:56] VITALS: BP 129/80
--- NOTE | 2022-04-29 09:01 | OP ---
SURGERY DATE/TIME: 04/29/2022 0704 PREOPERATIVE DIAGNOSES: 1) Plantar fasciitis chronic right foot. 2) Pain right foot. 3) Ingrown toenail lateral border of hallux. POSTOPERATIVE DIAGNOSES: 1) Plantar fasciitis chronic right foot. 2) Pain right foot. 3) Ingrown toenail lateral border of hallux. PROCEDURE: 1) Instep fasciotomy right foot. 2) Matrixectomy lateral border right hallux. SURGEON: Patrick Puckett DPM. LAMINATION ASSEMBLER: None. ANESTHESIA: General. HEMOSTASIS: Ankle tourniquet set 250 mm of Mercury for approximately 12 total tourniquet minutes. ESTIMATED BLOOD LOSS: Less than 3 cc. MATERIALS: 4-0 Monocryl, 3-0 Nylon. INJECTABLES: 20 cc of a 1:1 mixture of 1% of lidocaine plain and 0.5% bupivacaine plain injected in a posterior tibial nerve block as well as hallux block-type fashion. INDICATION FOR SURGERY: Jonel is a very pleasant 51-year-old male well known to my service for chronic plantar fasciitis. The patient has had injections in the past which have been unable to address his pain. The patient has gone to physical therapy, proceeded with eccentric stretching at home as well as night splints. He has failed all modalities and it has been longer than eight months at this time for treatment. The patient wishes with instep fasciotomy at this time in order to improve his chances of alleviating his pain. The patient does also have some complaint of an ingrown toenail to the lateral border of the hallux and he wishes to have this addressed at this time as well. The patient understands all risks, benefits and complications of surgical intervention including but not limited to infection, hematoma, seroma, possibility of delayed skin healing, nonskin healing, possibility of failure of surgery and need for further surgery at a later date. The patient understands that there are no guarantees provided as to the selected procedure. Success rates and complication rates have been discussed as well. It is with that we decided to proceed. DESCRIPTION OF PROCEDURE AND FINDINGS: The patient was brought into the OR and placed on the OR table in the supine position. At this time, general anesthesia was administered until the patient was sedated. A well-padded ankle tourniquet was applied to the right ankle. At this time the tourniquet was set to 250 mm of Mercury and the right lower extremity was prepped and draped in the typical sterile fashion. At this time a posterior tibial nerve block was performed utilizing 10 cc of a 1:1 mixture of 1% of lidocaine plain and 0.5% bupivacaine plain. At this time a hallux block was performed utilizing a 1:1 mixture of 1% of lidocaine plain and 0.5% bupivacaine plain injected in a hallux block-type fashion. At this time Esmarch was utilized to exsanguinate the foot and attention was directed to the plantar aspect of the right foot. At this time the end of the weightbearing surface of the heel was identified. An incision was made approximately 1.5 cm from this at the medial aspect of the plantar fat pad being careful with blunt and sharp dissection not to damage any neurovascular structures. The adipose tissue was and the plantar fascia was identified. At this time, one-third of the plantar fascia was resected utilizing a 15 blade exposing the flexor digitorum brevis muscle belly underneath. At this time the Windlass mechanism was activated identifying that the plantar fascia has been resected and the pressure at this area has been alleviated. Copious amounts of sterile saline were utilized to flush the surgical site at this time. 4-0 Monocryl was then utilized to coapt subcutaneous tissue in a simple interrupted buried-type fashion and then 3-0 Nylon was utilized in a horizontal mattress-type fashion to coapt the skin edges in an inverted-type fashion. Following this, attention was directed to the lateral border of the hallux where a spatula was introduced under the lateral nail border. At this time an Guatem[place] anvil was then was introduced underneath the nail fold and resected down to the level of the nail matrix. A curette was utilized to check the nail fold for any remnants of the nail. A curette was then utilized to damage the nail matrix and three - 30 second applications of Phenol was then introduced into the site of the matrixectomy. Following this, 70% isopropyl alcohol was utilized to neutralize the 89% Phenol and the incision on the toe was covered utilizing Silvadene, Adaptic, 2x2 and 1-inch Coban. The remaining incision site was then coapted utilizing a dressing applied consisting of Betadine, Adaptic, 4x4, Kerlix and LIANA applied with moderate compression. The patient then was reversed from anesthesia and the tourniquet let down at this time demonstrating 12 total tourniquet minutes. The patient was then returned to the postoperative anesthesia care unit with vital signs stable and vascular status intact. The patient handled the anesthesia as well as the procedure without significant complication. Postoperative orders as indicated in the patient's discharge chart.
== END 2022-04-29 09:10 | disposition home or self-care (01) ==
LOC: SDC 06:27
PROVIDERS: ATTEND Podiatrist Foot & Ankle Surgery
DX: M72.2 Plantar fascial fibromatosis (principal); M79.671 Pain in right foot; L60.0 Ingrowing nail
CPT/HCPCS: 11750; 28008; 36415; 83036; J0690; J1100; J1885; J2250; J2405; J2704; J3010

== ENCOUNTER 2023-04-30 04:44 | Emergency (ER) | payer BC ==
[2023-04-30 05:07] VITALS: TEMP 96.5
[2023-04-30] MEDS ORDERED: Rocephin 1000 MG INJ IM ONE (05:36)
[2023-04-30] MEDS ORDERED: Rocephin 1000 MG INJ ONE (05:38)
[2023-04-30] MEDS ORDERED: XYLOCAINE 1% HCL 20 ML MDV ONE (05:38)
--- NOTE | 2023-04-30 05:42 | ERPHSYRPT ---
- History of Present Illness Time Seen by Provider: 04/30/23 05:37 Source: patient Exam Limitations: no limitations Patient Subjective Stated Complaint: pt states he woke up on with pain and redness to the lt upper arm/axilla area. was seen in [facility] and started on clindamycin. area is larger this morning and more painful. Triage Nursing Assessment: pt alert and oriented, answers questions approp. pt ambulated into room with steady gait noted. respirations nonlabored. skin warm and dry.redness and warmth to lt upper arm/axilla approx 20x10 cm with indurated area approx 4x4cm. pt reports very tender to touch. Physician History: pt states he woke up on with pain and redness to the lt upper arm/axilla area. was seen in [facility] and started on clindamycin. area is larger this morning and more painful. skin warm and dry.redness and warmth to lt upper arm/axilla approx 20x10 cm with indurated area approx 4x4cm. pt reports very tender to touch Patient states He is diabetic, but he doesnot take any medicines. Timing/Duration: day(s) (two days ago) Severity: moderate Associated Symptoms: denies symptoms Allergies/Adverse Reactions: No Known Drug Allergies Allergy (Verified 04/30/23 05:08) Home Medications: Ferrous Sulfate 325 mg [Feosol 325 mg] 325 mg PO DAILY 04/30/23 [History] Losartan/Hydrochlorothiazide [Losartan-Hctz 100-12.5 mg Tab] 1 each PO DAILY 04/30/23 [History] Meloxicam 7.5 mg PO DAILY 04/30/23 [History] Omeprazole 40 mg PO DAILY 04/30/23 [History] Oxybutynin Chloride [Oxybutynin Chloride ER] 5 mg PO DAILY 04/30/23 [History] Ropinirole HCl 1 mg PO HS 04/30/23 [History] Simvastatin [Zocor] 40 mg PO DAILY 04/30/23 [History] Hx Tetanus, Diphtheria Vaccination/Date Given: Yes Hx Influenza Vaccination/Date Given: No Hx Pneumococcal Vaccination/Date Given: No Immunizations Up to Date: Yes Travel Risk - International Travel Have you traveled outside of the country in past 3 weeks: No - Coronavirus Screening Are you exhibiting any of the following symptoms?: No Close contact with a COVID-19 positive Pt in past 14-21 Days: No - Vaccine Status Have you recieved a Covid-19 vaccination: No - Review of Systems Constitutional: No Fever, No Chills Eyes: No Symptoms Ears, Nose, & Throat: No Symptoms Respiratory: No Cough, No Dyspnea Cardiac: No Chest Pain, No Edema, No Syncope Abdominal/Gastrointestinal: No Abdominal Pain, No Nausea, No Vomiting, No Diarrhea Genitourinary Symptoms: No Dysuria Musculoskeletal: No Back Pain, No Neck Pain Skin: Cellulitis (left axilla), No Rash Neurological: No Dizziness, No Focal Weakness, No Sensory Changes Psychological: No Symptoms Endocrine: No Symptoms All Other Systems: Reviewed and Negative - Past Medical History Pertinent Past Medical History: Yes Neurological History: Migraines ENT History: No Pertinent History Cardiac History: High Cholesterol, Hypertension Respiratory History: Other Endocrine Medical History: Other Musculoskeletal History: Degenerative Disk Disease, Fractures, Osteoarthritis GI Medical History: No Pertinent History History: No Pertinent History Psycho-Social History: No Pertinent History Male Reproductive Disorders: No Pertinent History Other Medical History: HX OF COVID BUT NOT VACCINATED. HX OF FX SWEETIE FEET AND LOWER LEG A KID - Past Surgical History Past Surgical History: Yes Neuro Surgical History: No Pertinent History Cardiac: No Pertinent History Respiratory: No Pertinent History Gastrointestinal: No Pertinent History Genitourinary: No Pertinent History Musculoskeletal: Other Male Surgical History: Vasectomy Other Surgical History: TRAUMATIC C-7 REPAIR, tendon replacement in L big toe, achillies tendon repair L, L leg sx after fracture, l4 l5 fracture, fascial release - Social History Smoking Status: Former smoker Exposure to second hand smoke: No Drug Use: none Patient Lives Alone: No - Nursing Vital Signs Nursing Vital Signs: Initial Vital Signs Temperature 96.5 F 04/30/23 04:50 Pulse Rate 73 04/30/23 04:50 Respiratory Rate 18 04/30/23 04:50 Blood Pressure 151/88 04/30/23 04:50 O2 Sat by Pulse Oximetry 99 04/30/23 04:50 Pain Scale Pain Intensity 6 - Physical Exam General Appearance: no apparent distress, alert Eye Exam: PERRL/EOMI, eyes nml inspection Ears, Nose, Throat Exam: normal ENT inspection, TMs normal, pharynx normal, moist mucous membranes Neck Exam: normal inspection, non-tender, supple, full range of motion Respiratory Exam: normal breath sounds, lungs clear, No respiratory distress Cardiovascular Exam: regular rate/rhythm, normal heart sounds, normal peripheral pulses Gastrointestinal/Abdomen Exam: soft, normal bowel sounds, No tenderness, No mass Back Exam: normal inspection, normal range of motion, No CVA tenderness, No vertebral tenderness Extremity Exam: normal inspection, normal range of motion, pelvis stable Neurologic Exam: alert, oriented x 3, cooperative, normal mood/affect, nml cerebellar function, nml station & gait, sensation nml, No motor deficits Skin Exam: normal color, warm, dry, other (hiruadenasis left axilla), No rash Lymphatic Exam: No adenopathy SpO2: 99 - Course Nursing assessment & vital signs reviewed: Yes Ordered Tests: Active Orders 24 hr Category Date Time Status POCT GLUCOSE Stat Lab 04/30/23 05:46 Completed Medication Summary Discontinued Medications Generic Name Dose Route Start Last Admin Trade Name Freq PRN Reason Stop Dose Admin Ceftriaxone Sodium 1,000 mg 04/30/23 05:36 Ceftriaxone Sodium 1000 Mg Inj Vial IM 04/30/23 05:37 STAT ONE Ceftriaxone Sodium Confirm 04/30/23 05:38 Ceftriaxone Sodium 1000 Mg Inj Vial Administered 04/30/23 05:39 Dose 1,000 mg .ROUTE .STK-MED ONE Lidocaine HCl Confirm 04/30/23 05:38 Lidocaine Hcl 1% 20 Ml Mdv 20 Ml Ml Administered 04/30/23 05:39 Dose 2 ml .ROUTE .STK-MED ONE Lab/Rad Data: Laboratory Results 04/30/23 Range/Units 05:46 POC Glucometer 137 H (74 to 106) mg/dL - Progress Progress: unchanged Counseled pt/family regarding: lab results, diagnosis, need for follow-up Medical Desision Making - Diagnostic Testing Diagnostic test were ordered, analyzed, and reviewed by me: No - Risk of complications Minimal Risk: Minimal risk of morbidity - Departure Departure Disposition: Home Clinical Impression: Cellulitis of left axilla, Hyperglycemia Condition: Stable Critical Care Time: No Referrals: DORINA DALE MD [Primary Care Provider] - Follow Up with PCP/3 days Instructions: Cellulitis and erysipelas (skin infections), High Blood Sugar, Adult (DC), The ABCs of diabetes, Prediabetes (DC) Additional Instructions: Discharge/Care Plan STEFAN DEVLIN was seen on 04/30/23 in the Emergency Room. The patient was counseled regarding Diagnosis,Lab results, Imaging studies, need for follow up and when to return to the Emergency Room. Prescriptions given: Discharge Note I have spoken with the patient and/or caregivers. I have explained the patient's condition, diagnosis and treatment plan based on the information available to me at this time. I have answered the patient's and/or caregiver's questions and addressed any concerns. The patient and/or caregivers have as good understanding of the patient's diagnosis, condition and treatment plan as can be expected at this point. The vital signs have been stable. The patient's condition is stable and appropriate for discharge from the emergency department. The patient will pursue further outpatient evaluation with the primary care physician or other designated or consulting physician as outlined in the discharge instructions. The patient and/or caregivers are agreeable to this plan of care and follow-up instructions have been explained in detail. The patient and/or caregivers have received these instruction. The patient/and or caregivers are aware that any significant change in condition or worsening of symptoms should prompt an immediate return to this or the closest emergency department or call 911. STEFAN DEVLIN was seen on 04/30/23 n the Emergency Room. At that time you were treated for an emergent condition, during your visit Laboratory, Radiology and/or other procedures may have been ordered. It is very important that you follow-up with your Primary Care Physician DORINA DALE within the next 24-48 hours to review your Emergency Room visit and the final results of testing that was ordered. Some test results such as Urine Cultures, Blood Cultures, and other cultures if ordered will not be finalized for 24-48 hours. If you do not have a Primary Care Provider please call the medical records department at [phone] ext [phone] to obtain a copy of your results or you may sign into our patient portal to obtain these results by visiting us @ [email or web address] and completing the following steps: 1. Click on the Patient Portal link 2. Click the Patient Self Enrollment Link to complete the enrollment form and entering your 3. Once the enrollment form is completed you will receive an email with a temporary ID and password at the email address you provided. 4. Next choose a user name and password. Your user name must be at least 4 characters long and your password must be at least 4 characters long. 5. Choose a security question from the list and provide your answer to the question. If you already have signed into the Health Portal you may access your Health Care Information 19/12 by the following steps: 1. Login to our website @ [email or web address] 2. Enter your original user name and password. FAQS The [facility] Health Portal is an online tool that contains your Lab Results, Radiology Reports, Visit History, Discharge Instructions and Health Summary Lab and Radiology Results will not be available for 72 hours on the portal. The Portal is a secure site, passwords are encryted and URLs are re-written so they cannot be copied and pasted. You and authorized family members are the only ones who can access your Portal. Also there is a timeout feature that protects your information if you leave the Portal page open. If you have technical difficulty please use the Contact Us link on the page this will allow you to submit any questions you have regarding the Portal or you may contact the Medical Record Department at [phone] ext [phone]. Prescriptions: Levofloxacin [Levaquin 500 MG Tablet] 500 mg PO QAM #10 tablet
[2023-04-30 06:17] VITALS: BP 139/83; PULSE 74; RESP 16; O2SAT 98
== END 2023-04-30 06:17 | disposition home or self-care (01) ==
LOC: ED 04:44
DX: L03.112 Cellulitis of left axilla (principal); E11.65 Type 2 diabetes mellitus with hyperglycemia; E78.5 Hyperlipidemia, unspecified; I10 Essential (primary) hypertension; Z79.899 Other long term (current) drug therapy; Z28.310 Unvaccinated for COVID-19; Z86.16 Personal history of COVID-19
CPT/HCPCS: 82947; 96372; 99282; J0696

== ENCOUNTER 2023-06-06 18:42 | Emergency (ER) | payer BC ==
[2023-06-06 21:48] VITALS: TEMP 98.7
[2023-06-06 22:26] VITALS: RESP 20; O2SAT 98
--- NOTE | 2023-06-06 22:47 | ERPHSYRPT ---
- History of Present Illness Time Seen by Provider: 06/06/23 21:30 Source: patient Exam Limitations: no limitations Patient Subjective Stated Complaint: pt states that at approx 1800 this evening he was using a roe head screwdriver and the the head of the screwdriver came off and punctured his right pointer finger anterior distal section. pt states he is up to date on his tetanus vaccination. pt is holding pressure gauze to finger at this time and states when he looked recently it was still bleeding. Triage Nursing Assessment: pt ambulated to room 5 independently with slow steady gait after standing on scale for weight acquisition. pt is alert and oriented times three, able to move all extremities, able to speak in complete sentences, and with resp even and unlabored. pt states pain to puncture site is 4/10 intermittent throbbing. bruising noted around jagged puncture site that is approx 1cm in length, clean, well approximated, and with small amt of bleeding that is controlled with holding gauze to site. denies numbness or tingling. Physician History: 52-year-old male presents to our ED with a laceration to the right index finger. Patient was utilizing a power tool with a Roe head with a Roe head slipped off of the screw and lacerated his right index finger. Laceration is at the lateral aspect of the distal phalanx. Patient stated he had difficulty getting it to stop bleeding. However upon arrival there was no active bleeding. Patient's tetanus is up-to-date. Pain described as an ache that is localized. No radiation. Patient is otherwise healthy. He voices no other complaints or concerns at this time. No other injuries reported. Portions of this note were created with voice recognition technology. There may be grammatical, spelling, punctuation or sound alike errors Timing/Duration: today Severity: moderate Modifying Factors: Improves With: movement Associated Symptoms: denies symptoms Allergies/Adverse Reactions: No Known Drug Allergies Allergy (Verified 06/06/23 21:13) Home Medications: Ferrous Sulfate 325 mg [Feosol 325 mg] 325 mg PO DAILY 04/30/23 [History] Losartan/Hydrochlorothiazide [Losartan-Hctz 100-12.5 mg Tab] 1 each PO DAILY 04/30/23 [History] Meloxicam 7.5 mg PO DAILY 04/30/23 [History] Omeprazole 40 mg PO DAILY 04/30/23 [History] Oxybutynin Chloride [Oxybutynin Chloride ER] 5 mg PO DAILY 04/30/23 [History] Simvastatin [Zocor] 40 mg PO DAILY 04/30/23 [History] Ropinirole 2Mg [Requip 2Mg Tab] 0.5 tab PO HS 06/06/23 [History] Hx Tetanus, Diphtheria Vaccination/Date Given: Yes Hx Influenza Vaccination/Date Given: No Hx Pneumococcal Vaccination/Date Given: No Immunizations Up to Date: Yes Travel Risk - International Travel Have you traveled outside of the country in past 3 weeks: No - Coronavirus Screening Are you exhibiting any of the following symptoms?: No Close contact with a COVID-19 positive Pt in past 14-21 Days: No - Vaccine Status Have you recieved a Covid-19 vaccination: No - Review of Systems Constitutional: No Symptoms, No Fever, No Chills Eyes: No Symptoms Ears, Nose, & Throat: No Symptoms Respiratory: No Symptoms, No Cough, No Dyspnea Cardiac: No Symptoms, No Chest Pain, No Edema, No Syncope Abdominal/Gastrointestinal: No Symptoms, No Abdominal Pain, No Nausea, No Vomiting, No Diarrhea Genitourinary Symptoms: No Symptoms, No Dysuria Musculoskeletal: No Symptoms, No Back Pain, No Neck Pain Skin: No Symptoms, No Rash Neurological: No Symptoms, No Dizziness, No Focal Weakness, No Sensory Changes Psychological: No Symptoms Endocrine: No Symptoms Hematologic/Lymphatic: No Symptoms Immunological/Allergic: No Symptoms All Other Systems: Reviewed and Negative - Past Medical History Pertinent Past Medical History: Yes Neurological History: Migraines ENT History: No Pertinent History Cardiac History: High Cholesterol, Hypertension Respiratory History: Other Endocrine Medical History: Other Musculoskeletal History: Degenerative Disk Disease, Fractures, Osteoarthritis, Other GI Medical History: GERD History: No Pertinent History Psycho-Social History: Depression Male Reproductive Disorders: No Pertinent History Other Medical History: HX OF COVID BUT NOT VACCINATED. HX OF FX SWEETIE FEET AND LOWER LEG A KID. achilles tendon repair - Past Surgical History Past Surgical History: Yes Neuro Surgical History: No Pertinent History Cardiac: No Pertinent History Respiratory: No Pertinent History Gastrointestinal: No Pertinent History Genitourinary: No Pertinent History Musculoskeletal: Other Male Surgical History: Vasectomy Other Surgical History: TRAUMATIC C-7 REPAIR, tendon replacement in L big toe, achillies tendon repair L, L leg sx after fracture, l4 l5 fracture, fascial release - Social History Smoking Status: Former smoker Exposure to second hand smoke: No Drug Use: none Patient Lives Alone: No - Nursing Vital Signs Nursing Vital Signs: Initial Vital Signs Temperature 98.7 F 06/06/23 21:15 Pulse Rate 68 06/06/23 21:15 Respiratory Rate 16 06/06/23 21:15 Blood Pressure 152/78 06/06/23 21:15 O2 Sat by Pulse Oximetry 96 06/06/23 21:15 Pain Scale Pain Intensity 4 - Physical Exam General Appearance: alert Eye Exam: PERRL/EOMI, eyes nml inspection Ears, Nose, Throat Exam: moist mucous membranes Neck Exam: normal inspection, full range of motion Respiratory Exam: normal breath sounds, airway intact, No respiratory distress Cardiovascular Exam: regular rate/rhythm, normal peripheral pulses Gastrointestinal/Abdomen Exam: No tenderness, No mass Back Exam: normal inspection, normal range of motion, No CVA tenderness, No vertebral tenderness Extremity Exam: normal inspection, normal range of motion, pelvis stable Neurologic Exam: alert, oriented x 3, cooperative, normal mood/affect, sensation nml, No motor deficits Skin Exam: normal color, warm, dry, No rash Lymphatic Exam: No adenopathy SpO2 Interpretation: normal SpO2: 98 O2 Delivery: Room Air Procedures - Laceration/Wound Repair Finger Time of Procedure: 22:53 Wound Location: Right (Right index finger) Wound Length (cm): 1.5 Wound Explored: clean Irrigated: Yes Hibiclens Prep: Yes Anesthesia: 1% Lidocaine (No epinephrine) Volume Anesthetic (ccs): 3 Wound Debrided: No debridement indicated Wound Repaired With: sutures Suture Size/Type: 5-0, ethilon Layer Closure?: No Sterile Dressing Applied?: Yes Sling Applied?: No - Course Nursing assessment & vital signs reviewed: Yes - Radiology Exams Other X-ray Interpretation: Interpreted by me (Finger x-ray no fracture dislocations.) Ordered Tests: Active Orders 24 hr Category Date Time Status FINGER(S) Stat Exams 06/06/23 21:26 Taken - Progress Progress: improved Progress Note: 52-year-old male presents to our ED for evaluation of laceration to right index finger. Injury occurred just prior to arrival. 1.5 cm laceration observed on the lateral aspect of the distal phalanx. No involvement of the nail plate. The involved digits neurovascular tact distally. The wound was repaired using 4 simple interrupted sutures. 5-0 Ethilon was used for repair. Patient neurovascular intact distally post and preprocedure. Tetanus up-to-date. A prescription for Keflex forwarded to patient's pharmacy. Patient agrees to follow-up with his primary care doctor within 48 hours for evaluation. Portions of this note were created with voice recognition technology. There may be grammatical, spelling, punctuation or sound alike errors Complexity problem addressed is low acute uncomplicated No critical care time. Complexity of data reviewed and analyzed is moderate. Test ordered test reviewed. Results analyzed and correlated clinically with history and physical exam. X-ray of involved digit independently reviewed by Dr. Jean Baptiste. Risk of complication and or risk morbidity/mortality of patient management is moderate. A prescription for Keflex forwarded to patient's pharmacy. Patient agrees to follow-up with his primary care doctor within 48 hours for evaluation. Vital stable. Plan of care established for shared decision making. No social determinants of health present impede follow-up. 06/06/23 23:07 Counseled pt/family regarding: diagnosis, need for follow-up, rad results - Departure Departure Disposition: Home Clinical Impression: Finger laceration Condition: Stable Critical Care Time: No Referrals: DORINA DALE MD [Primary Care Provider] - Follow up/PCP as directed Additional Instructions: Discharge/Care Plan STEFAN DEVLIN was seen on 06/06/23 in the Emergency Room. The patient was counseled regarding Diagnosis,Lab results, Imaging studies, need for follow up and when to return to the Emergency Room. Prescriptions given: Discharge Note I have spoken with the patient and/or caregivers. I have explained the patient's condition, diagnosis and treatment plan based on the information available to me at this time. I have answered the patient's and/or caregiver's questions and addressed any concerns. The patient and/or caregivers have as good understanding of the patient's diagnosis, condition and treatment plan as can be expected at this point. The vital signs have been stable. The patient's condition is stable and appropriate for discharge from the emergency department. The patient will pursue further outpatient evaluation with the primary care physician or other designated or consulting physician as outlined in the discharge instructions. The patient and/or caregivers are agreeable to this plan of care and follow-up instructions have been explained in detail. The patient and/or caregivers have received these instruction. The patient/and or caregivers are aware that any significant change in condition or worsening of symptoms should prompt an immediate return to this or the closest emergency department or call 911. Prescriptions: Cephalexin Mh 500 mg [Keflex 500 mg] 500 mg PO TID #21 cap
[2023-06-06 23:10] VITALS: BP 143/96; PULSE 64
--- NOTE | 2023-06-07 09:00 | XRAY ---
Indication: Puncture wound. Comparison: None 3 view right 2nd finger demonstrates 2-3 punctate foreign bodies in distal soft tissues. No other bony, articular, or soft tissue abnormalities.
== END 2023-06-06 23:19 | disposition home or self-care (01) ==
LOC: ED 18:42
DX: S61.210A Laceration without foreign body of right index finger without damage to nail, initial encounter (principal); W29.8XXA Contact with other powered hand tools and household machinery, initial encounter; E78.5 Hyperlipidemia, unspecified; I10 Essential (primary) hypertension; Z79.899 Other long term (current) drug therapy; Z28.310 Unvaccinated for COVID-19; Z86.16 Personal history of COVID-19
CPT/HCPCS: 12001; 73140; 99283

== ENCOUNTER 2024-03-18 06:03 | Day surgery (SDC) | payer BC ==
[2024-03-18] MEDS: Lactated Ringers 1,000 ML IV SCH (06:11)
[2024-03-18 06:17] VITALS: RESP 18
[2024-03-18] MEDS ORDERED: DIPRIVAN 200 MG/20 ML IV ONE ×2 (08:07→08:26)
[2024-03-18] MEDS ORDERED: Versed 2 MG/2 ML Injection ONE (08:07)
[2024-03-18] MEDS ORDERED: Xylocaine-Mpf 2% 5 Ml Vial ONE (08:07)
[2024-03-18] MEDS ORDERED: ATROPINE SULFATE 1MG ONE (08:08)
[2024-03-18] MEDS ORDERED: SUBLIMAZE 100 MCG/2 ML ONE (08:26)
[2024-03-18 08:57] VITALS: O2SAT 96
[2024-03-18 09:07] VITALS: BP 128/70; PULSE 55; TEMP 98.2
--- NOTE | 2024-03-19 12:06 | OP ---
SURGERY DATE/TIME: 03/18/2024 2142 - [id number] PREOPERATIVE DIAGNOSIS: Screening exam. POSTOPERATIVE DIAGNOSIS: Normal colon. PROCEDURE: Colonoscopy. SURGEON: Mandeep Tanner MD ANESTHESIA: Medications given by anesthesia department. INDICATIONS: The patient is a 53-year-old white male patient presenting for screening colonoscopy. He says it has been 12 years since his last examination. He had one previous to that in which polyps were found. Apparently, he had tattooing of the area, which was visible during our examination. The patient was appraised of the risks of the procedure including risk of perforation, phlebitis, untoward reaction to medication, bleeding, and missed lesions. The patient verbalized his understanding and desired to have the procedure performed. DESCRIPTION OF PROCEDURE AND FINDINGS: The patient was given medication by the anesthesia department. He had continuous pulse oximetry, ECG monitoring, intermittent blood pressure monitoring, and end-tidal CO2 monitoring during the examination. He was placed in left lateral decubitus position. Digital rectal examination was performed and revealed normal anal sphincter tone, no masses, and normal prostate. The flexible Olympus videocolonoscope was used to intubate the rectum. A view of the colon was developed sequentially to the cecum as identified by the appendiceal orifice and ileocecal valve. Upon insertion and withdrawal including retroflexion in the rectum, no mucosal lesions were encountered. The scope was removed from the patient. He tolerated the procedure well and was sent back to outpatient recovery in good condition. The prep was noted to be good.
== END 2024-03-18 09:10 | disposition home or self-care (01) ==
LOC: SDC 06:03
PROVIDERS: ATTEND Family Medicine
DX: Z12.11 Encounter for screening for malignant neoplasm of colon (principal)
CPT/HCPCS: J0461; J2250; J2704; J3010

== ENCOUNTER 2024-05-01 14:54 | Day surgery (SDC) | payer BC ==
[2024-05-01] MEDS ORDERED: Decadron 4 MG INJ IV ONE (14:55)
[2024-05-01] MEDS ORDERED: LIDOCAINE HCL 1% AMPUL 5 ML IJ ONE (14:55)
--- NOTE | 2024-05-01 19:00 | XRAY ---
Indication: Right piriformis injection. Intraoperative fluoroscopy provided for 15 seconds. Single digital spot image submitted for interpretation demonstrates posterior needle tip projecting over right piriformis. Small amount of contrast injected for needle tip placement. Correlate with intraoperative findings/report.
--- NOTE | 2024-05-02 09:01 | XRAY ---
15 seconds of fluoroscopy used in surgery for a right piriformis injection.
== END 2024-05-01 17:00 | disposition home or self-care (01) ==
LOC: SDC-PAIN 14:54
PROVIDERS: ATTEND Psychiatry & Neurology Pain Medicine
DX: M79.18 Myalgia, other site (principal)
CPT/HCPCS: 20552; 72170; 77002; J1100; Q9966

== ENCOUNTER 2024-06-06 06:47 | Day surgery (SDC) | payer BC ==
[2024-06-06] MEDS ORDERED: LIDOCAINE HCL 1% 50 MG/5 ML VL IJ ONE (06:48)
[2024-06-06] MEDS ORDERED: BUPIVACAINE 0.5% VIAL IJ ONE (06:48)
[2024-06-06] MEDS ORDERED: methylPREDNISolone acetate IM ONE (06:48)
--- NOTE | 2024-06-06 10:11 | XRAY ---
Indication: Right SI joint injection. Intraoperative fluoroscopy provided for 27 seconds. 2 digital spot image submitted for interpretation demonstrates posterior needle tip projecting over right SI joint. Small amount of contrast injected for needle tip placement. Correlate with intraoperative findings/report. Incidental incompletely visualized lower lumbar fusion hardware.
--- NOTE | 2024-06-06 10:13 | XRAY ---
27 seconds of fluoroscopy was used in surgery for a right sacroiliac joint injection.
== END 2024-06-06 08:57 | disposition home or self-care (01) ==
LOC: SDC-PAIN 06:47
PROVIDERS: ATTEND Psychiatry & Neurology Pain Medicine
DX: M46.1 Sacroiliitis, not elsewhere classified (principal)
CPT/HCPCS: 27096; 72170; 77002; J1010; Q9966

== ENCOUNTER 2024-12-25 15:09 | Day surgery (SDC) | payer BC ==
[2024-12-25] MEDS ORDERED: Marcaine Mpf 0.5% Vial 30 Ml IJ ONE (15:10)
[2024-12-25] MEDS ORDERED: Depo-Medrol 40 MG/ML IM ONE (15:10)
[2024-12-25] MEDS ORDERED: propofoL IV ONE (16:33)
[2024-12-25] MEDS ORDERED: Lactated Ringers 1,000 ML IV ONE (16:34)
--- NOTE | 2024-12-25 19:37 | XRAY ---
Indication: Right hip and greater trochanter bursa injection. Intraoperative fluoroscopy provided for 38 seconds. 2 digital spot image submitted for interpretation demonstrates needle tip projecting lateral to right femur neck. Second needle tip lateral to greater trochanter. Small amount of contrast injected for needle tip placement. Correlate with intraoperative findings/report.
--- NOTE | 2024-12-25 19:39 | XRAY ---
38 seconds of fluoroscopy were used in surgery for a right intra-articular and a right greater trochanteric bursa injection.
== END 2024-12-25 17:07 | disposition home or self-care (01) ==
LOC: SDC-PAIN 15:09
PROVIDERS: ATTEND Psychiatry & Neurology Pain Medicine
DX: M16.11 Unilateral primary osteoarthritis, right hip (principal); M70.61 Trochanteric bursitis, right hip